=== PATIENT | female | born 1985 | race Caucasian/White ===

== ENCOUNTER 2019-05-07 01:30 | Inpatient (IN) ==
[2019-05-07] MEDS ORDERED: Ondansetron 4 MG/2 ML VIAL IVP PRN ×2 (03:10→06:51)
[2019-05-07] MEDS ORDERED: Naloxone 0.4 MG/ML INJ IVP PRN ×2 (03:10→06:51)
[2019-05-07] MEDS ORDERED: miSOPROStoL 25 MCG TABLET VG PRN (03:10)
[2019-05-07] MEDS ORDERED: Famotidine 20 MG/2 ML VIAL IVP PRN (03:10)
[2019-05-07] MEDS ORDERED: Lidocaine 1% 20 ML MDV INFILT PRN (03:10)
[2019-05-07] MEDS ORDERED: *HR* FentaNYL (PF) 100 MCG/2 ML VIAL IVP PRN (03:10)
[2019-05-07] MEDS ORDERED: Metoclopramide 10 MG/2 ML VIAL IVP PRN (03:10)
[2019-05-07] MEDS ORDERED: Ringers Solution, Lactated 1,000 ML IVC SCH (03:15)
[2019-05-07] MEDS ORDERED: Oxytocin 20 units/ LR 1000 mL 20 UNIT/1,000 ML BAG IVC SCH (03:15)
[2019-05-07 03:47] LABS: Basophils % 0.3 %; Eosinophils # 0.1 K/mcL (0.0-0.6); Eosinophils % 0.5 %; Hemoglobin 12.8 g/dL (11.5-15.4); Immature Granulocytes % 0.8 % (0-4); Lymphocytes % 19.6 %; Mean Corpuscular HGB Conc 33.7 g/dL (31.6-35.5); Mean Corpuscular Hemoglobin 31.3 pg (28.0-33.3); Mean Corpuscular Volume 92.9 fL (83.0-100.0); Mean Platelet Volume 9.7 fL (9.4-12.4); Monocytes # 0.8 K/mcL (0.0-1.3); Monocytes % 7.8 %; Neutrophils # 7.3 K/mcL (1.6-8.9); Platelet Count 200 K/mcL (140-400); Red Blood Count 4.09 M/mcL (3.82-4.97); Red Cell Distribution Width 12.8 % (11.5-14.5); White Blood Count 10.3 K/mcL (4.3-11.1)
[2019-05-07 03:55] LABS: Amphetamine Screen,Urine Negative ng/mL (Cutoff=1000); Barbiturate Screen,Urine Negative ng/mL (Cutoff=200); Benzodiazepines Screen,Urine Negative ng/mL (Cutoff=200); Cannabinoid Screen,Urine Negative ng/mL (Cutoff = 50); Cocaine Screen,Urine Negative ng/mL (Cutoff= 300); Opiate Screen,Urine Negative ng/mL (Cutoff=300); Phencyclidine Screen,Urine Negative ng/mL (Cutoff=25)
[2019-05-07] MEDS: miSOPROStoL 25 MCG TABLET PO SCH ×2 (04:39→19:58)
[2019-05-07] MEDS ORDERED: *HR* FentaNYL (PF) 100 MCG/2 ML VIAL EP ONE (06:51)
[2019-05-07] MEDS ORDERED: Ropivacaine/PF 0.2% 20 ML VIAL EP ONE (06:51)
[2019-05-07] MEDS ORDERED: EPHEDrine 50 MG/ML VIAL IVP PRN (06:51)
[2019-05-07] MEDS ORDERED: Epidural Premix (fent/bupiv) 110 ML EP SCH (07:00)
[2019-05-07] MEDS ORDERED: Bupivacaine-MPF 0.25% 10 ML VIAL ONE (07:03)
[2019-05-07] MEDS ORDERED: *HR* FentaNYL (PF) 100 MCG/2 ML VIAL ONE (07:03)
[2019-05-07] MEDS ORDERED: Measles/Mumps/Rubella Vacc 0.5 ML VIAL SQ PRN (16:43)
[2019-05-07] MEDS: Ibuprofen 600 MG TABLET PO PRN (16:50)
[2019-05-07] MEDS: Oxytocin 20 units/ LR 1000 mL 20 UNIT/1,000 ML BAG IVC SCH (18:34)
[2019-05-07] MEDS: Acetaminophen 325 MG TABLET PO PRN (20:09)
[2019-05-08] MEDS: Ibuprofen 600 MG TABLET PO PRN ×2 (01:05→10:55)
[2019-05-08] MEDS: Acetaminophen 325 MG TABLET PO PRN (01:05)
[2019-05-08] MEDS: Oxytocin 20 units/ LR 1000 mL 20 UNIT/1,000 ML BAG IVC SCH (04:37)
[2019-05-08 05:47] LABS: Basophils % 0.2 %; Eosinophils # 0.1 K/mcL (0.0-0.6); Eosinophils % 0.5 %; Hematocrit 30.1 % (35.3-44.9); Immature Granulocytes % 0.6 % (0-4); Lymphocytes # 1.7 K/mcL (0.6-4.6); Lymphocytes % 15.1 %; Mean Corpuscular HGB Conc 33.9 g/dL (31.6-35.5); Mean Corpuscular Hemoglobin 31.5 pg (28.0-33.3); Mean Corpuscular Volume 92.9 fL (83.0-100.0); Mean Platelet Volume 9.5 fL (9.4-12.4); Monocytes # 0.6 K/mcL (0.0-1.3); Monocytes % 5.5 %; Neutrophils # 8.7 K/mcL (1.6-8.9); Platelet Count 155 K/mcL (140-400); Red Blood Count 3.24 M/mcL (3.82-4.97); Red Cell Distribution Width 12.8 % (11.5-14.5); Segmented Neutrophils % 78.1 %; White Blood Count 11.1 K/mcL (4.3-11.1)
[2019-05-08 05:49] LABS: Hemoglobin 10.2 g/dL (11.5-15.4)
[2019-05-08 07:49] VITALS: BP 131/80
[2019-05-08] MEDS ORDERED: Prenatal Vit/FA 1 EACH TABLET PO SCH (09:00)
== END 2019-05-08 17:15 | disposition home or self-care (01) | DRG 807 ==
LOC: 1NENULAB 03:09 → 1NENUOBS 17:21
PROVIDERS: ADMIT Obstetrics & Gynecology; ATTEND Obstetrics & Gynecology

== ENCOUNTER 2021-07-25 05:52 | Observation (INO) ==
[2021-07-25] MEDS ORDERED: Ringers Solution, Lactated 1,000 ML ONE (07:06)
[2021-07-25] MEDS ORDERED: Ringers Solution, Lactated 500 ML IVC ONE (07:08)
[2021-07-25] MEDS ORDERED: Ringers Solution, Lactated 1,000 ML IVC SCH (07:15)
[2021-07-25] MEDS ORDERED: Betamethasone Acet/SodPhos 30 MG/5 ML VIAL IM SCH (07:15)
[2021-07-25 07:44] LABS: Basophils % 0.2 %; Eosinophils % 0.3 %; Hematocrit 36.4 % (35.3-44.9); Hemoglobin 12.4 g/dL (11.5-15.4); Immature Granulocytes % 0.5 % (0-4); Lymphocytes # 1.1 K/mcL (0.6-4.6); Lymphocytes % 16.2 %; Mean Corpuscular HGB Conc 34.1 g/dL (31.6-35.5); Mean Corpuscular Hemoglobin 30.5 pg (28.0-33.3); Mean Corpuscular Volume 89.7 fL (83.0-100.0); Mean Platelet Volume 8.8 fL (9.4-12.4); Monocytes # 0.5 K/mcL (0.0-1.3); Monocytes % 7.3 %; Neutrophils # 4.9 K/mcL (1.6-8.9); Platelet Count 188 K/mcL (140-400); Red Blood Count 4.06 M/mcL (3.82-4.97); Red Cell Distribution Width 12.9 % (11.5-14.5); Segmented Neutrophils % 75.5 %; White Blood Count 6.5 K/mcL (4.3-11.1)
[2021-07-25 07:59] LABS: Bilirubin,Urine Negative (Negative); Blood,Urine Large (Negative); Clarity,Urine Clear (Clear); Color,Urine Colorless (Yellow); Glucose,Urine (UA) Normal (Normal); Ketones,Urine Negative (Negative); Leukocyte Esterase,Urine Negative (Negative); Nitrite,Urine Negative (Negative); Protein,Urine Negative (Neg-Trace); Specific Gravity,Urine < 1.005 (1.010-1.025); Urobilinogen,Urine Normal (Normal)
[2021-07-25 08:06] LABS: Bacteria,Urine Few per hpf (None-Few); Squamous Epithelial Cell,Urine Moderate per hpf (None-Few); WBC,Urine 0-3 per hpf (0-3)
[2021-07-25] MEDS ORDERED: D5% in Lactated Ringers 500 ML IV SOLUTION IVC SCH (09:15)
[2021-07-25] MEDS ORDERED: D5% in Lactated Ringers 1,000 ML IVC SCH (09:30)
[2021-07-26 00:08] LABS: Hematocrit 38.5 % (35.3-44.9); Hemoglobin 12.8 g/dL (11.5-15.4); Mean Corpuscular HGB Conc 33.2 g/dL (31.6-35.5); Mean Corpuscular Hemoglobin 30.4 pg (28.0-33.3); Mean Corpuscular Volume 91.4 fL (83.0-100.0); Mean Platelet Volume 9.4 fL (9.4-12.4); Platelet Count 216 K/mcL (140-400); Red Blood Count 4.21 M/mcL (3.82-4.97); White Blood Count 10.6 K/mcL (4.3-11.1)
== END 2021-07-26 00:20 | disposition short-term general hospital (02) ==
LOC: 1NENULAB
PROVIDERS: ADMIT Obstetrics & Gynecology; ATTEND Obstetrics & Gynecology

== ENCOUNTER 2021-08-05 05:36 | Observation (INO) ==
[2021-08-05 07:01] LABS: Hemoglobin 12.2 g/dL (11.5-15.4); Mean Corpuscular Hemoglobin 29.6 pg (28.0-33.3); Mean Corpuscular Volume 89.8 fL (83.0-100.0); Mean Platelet Volume 9.1 fL (9.4-12.4); Platelet Count 218 K/mcL (140-400); Red Blood Count 4.12 M/mcL (3.82-4.97); Red Cell Distribution Width 12.7 % (11.5-14.5); White Blood Count 8.2 K/mcL (4.3-11.1)
[2021-08-05 07:06] LABS: Bacteria,Urine Few per hpf (None-Few); Bilirubin,Urine Negative (Negative); Blood,Urine Small (Negative); Clarity,Urine Turbid (Clear); Color,Urine Yellow (Yellow); Glucose,Urine (UA) Normal (Normal); Ketones,Urine Negative (Negative); Leukocyte Esterase,Urine Negative (Negative); Mucus,Urine Few per lpf (None-Few); Nitrite,Urine Negative (Negative); PH,Urine 6.5 pH Units (5.0-8.0); Protein,Urine Trace mg/dL (Neg-Trace); RBC,Urine 0-3 per hpf (0-3); Specific Gravity,Urine 1.018 (1.010-1.025); Squamous Epithelial Cell,Urine Moderate per hpf (None-Few); Urobilinogen,Urine Normal (Normal); WBC,Urine 0-3 per hpf (0-3)
[2021-08-05] MEDS ORDERED: Ringers Solution, Lactated 1,000 ML IVC SCH (07:15)
== END 2021-08-05 12:16 | disposition short-term general hospital (02) ==
LOC: 1NENULAB
PROVIDERS: ADMIT Obstetrics & Gynecology; ATTEND Obstetrics & Gynecology

== ENCOUNTER 2021-08-07 06:36 | Inpatient (IN) ==
[2021-08-07 06:11] LABS: Basophils % 0.2 %; Eosinophils # 0.1 K/mcL (0.0-0.6); Eosinophils % 0.8 %; Hematocrit 38.1 % (35.3-44.9); Hemoglobin 12.9 g/dL (11.5-15.4); Immature Granulocytes % 0.8 % (0-4); Lymphocytes # 1.9 K/mcL (0.6-4.6); Lymphocytes % 21.1 %; Mean Corpuscular HGB Conc 33.9 g/dL (31.6-35.5); Mean Corpuscular Hemoglobin 30.6 pg (28.0-33.3); Mean Corpuscular Volume 90.3 fL (83.0-100.0); Mean Platelet Volume 9.1 fL (9.4-12.4); Monocytes # 0.6 K/mcL (0.0-1.3); Monocytes % 6.8 %; Neutrophils # 6.4 K/mcL (1.6-8.9); Platelet Count 244 K/mcL (140-400); Red Blood Count 4.22 M/mcL (3.82-4.97); Red Cell Distribution Width 12.9 % (11.5-14.5); Segmented Neutrophils % 70.3 %; White Blood Count 9.2 K/mcL (4.3-11.1)
[~2021-08-07 06:36] MED LIST: Famotidine 20 MG/2 ML VIAL IVP PRN; Metoclopramide 10 MG/2 ML VIAL IVP PRN; Ringers Solution, Lactated 1,000 ML IVC SCH; Ringers Solution, Lactated 1,000 ML ONE
[2021-08-07 06:40] LABS: Amphetamine Screen,Urine Negative ng/mL (Cutoff=1000); Barbiturate Screen,Urine Negative ng/mL (Cutoff=200)
[2021-08-07 06:41] LABS: Benzodiazepines Screen,Urine Negative ng/mL (Cutoff=300); Cannabinoid Screen,Urine Negative ng/mL (Cutoff = 50); Cocaine Screen,Urine Negative ng/mL (Cutoff= 300); Influenza A PCR Negative (Negative); Influenza B PCR Negative (Negative); Opiate Screen,Urine Negative ng/mL (Cutoff=300); Phencyclidine Screen,Urine Negative ng/mL (Cutoff=25); Resp. Syncytial Virus PCR Negative (Negative)
[2021-08-07] MEDS ORDERED: CeFAZolin 2,000 MG/120 ML BAG IVPB ONE (07:00)
[2021-08-07] MEDS ORDERED: *HR* Phenylephrine 10 MG/ML VIAL ONE (07:04)
[2021-08-07] MEDS ORDERED: Ondansetron 4 MG/2 ML VIAL ONE (07:04)
[2021-08-07] MEDS ORDERED: Promethazine 6.25 MG in Water for inj. (sterile) 20 ML IVPB PRN (07:07)
[2021-08-07] MEDS ORDERED: Naloxone 0.4 MG/ML INJ IVP PRN (07:07)
[2021-08-07] MEDS ORDERED: *HR* FentaNYL (PF) 100 MCG/2 ML VIAL IVP PRN (07:07)
[2021-08-07] MEDS ORDERED: *HR* OxyCODONE Immed Rel 5 MG TABLET PO PRN (07:07)
[2021-08-07] MEDS ORDERED: EPHEDrine 50 MG/ML VIAL ONE (07:08)
[2021-08-07] MEDS ORDERED: *HR* Midazolam HCl 2 MG/2 ML VIAL ONE (07:08)
[2021-08-07] MEDS ORDERED: Oxytocin 30 UNIT/503 ML BAG IVC ONE (07:08)
[2021-08-07] MEDS ORDERED: *HR* FentaNYL (PF) 100 MCG/2 ML VIAL ONE (07:09)
[2021-08-07] MEDS ORDERED: *HR* Morphine Sulfate/PF 10 MG/10 ML AMPUL ONE (07:09)
[2021-08-07] MEDS ORDERED: Ringers Solution, Lactated 1,000 ML ONE (07:16)
[2021-08-07] MEDS ORDERED: *HR* Oxytocin 10 UNIT/ML VIAL ONE (07:16)
[2021-08-07 07:19] LABS: SARS-CoV-2 by PCR (In House) Negative (Negative)
[2021-08-07] MEDS ORDERED: Ketorolac 30 MG/ML VIAL ONE (08:11)
[2021-08-07] MEDS ORDERED: Acetaminophen IV 1,000 MG/100 ML BAG IVPB ONE (08:11)
[2021-08-07] MEDS ORDERED: Metoclopramide 10 MG/2 ML VIAL IVP PRN (11:24)
[2021-08-07] MEDS ORDERED: OXYTOCIN/RINGERS LACTATE 10 UNIT/166.6 ML BAG IVC ONE (11:24)
[2021-08-07] MEDS ORDERED: Ondansetron 4 MG/2 ML VIAL IVP PRN (11:24)
[2021-08-07] MEDS ORDERED: Simethicone 80 MG TAB.CHEW PO PRN (11:24)
[2021-08-07] MEDS: Prenatal Vit/FA 1 EACH TABLET PO SCH (11:40)
[2021-08-07] MEDS: Ibuprofen 600 MG TABLET PO SCH ×2 (11:41→18:25)
[2021-08-07] MEDS: Loratadine 10 MG TABLET PO SCH (11:54)
[2021-08-07] MEDS: metroNIDAZOLE 500 MG TABLET PO SCH ×3 (11:55→20:17)
[2021-08-07] MEDS: *HR* OxyCODONE Immed Rel 5 MG TABLET PO PRN ×3 (12:05→20:19)
[2021-08-07] MEDS: Acetaminophen 325 MG TABLET PO SCH (16:02)
[2021-08-07] MEDS: CeFAZolin 2,000 MG/120 ML BAG IVPB SCH (16:02)
[2021-08-07] MEDS ORDERED: *HR* Nalbuphine 10 MG/ML AMPUL IV PRN (17:04)
[2021-08-08] MEDS: Acetaminophen 325 MG TABLET PO SCH ×4 (00:26→22:37)
[2021-08-08] MEDS: CeFAZolin 2,000 MG/120 ML BAG IVPB SCH ×2 (00:26→07:42)
[2021-08-08] MEDS: Ibuprofen 600 MG TABLET PO SCH ×4 (00:26→20:06)
[2021-08-08] MEDS: *HR* OxyCODONE Immed Rel 5 MG TABLET PO PRN ×5 (03:21→21:15)
[2021-08-08 05:30] LABS: Basophils % 0.2 %; Eosinophils % 0.1 %; Hematocrit 33.2 % (35.3-44.9); Immature Granulocytes % 0.6 % (0-4); Lymphocytes # 1.6 K/mcL (0.6-4.6); Lymphocytes % 12.2 %; Mean Corpuscular HGB Conc 33.1 g/dL (31.6-35.5); Mean Corpuscular Hemoglobin 30.3 pg (28.0-33.3); Mean Corpuscular Volume 91.5 fL (83.0-100.0); Mean Platelet Volume 9.2 fL (9.4-12.4); Neutrophils # 10.3 K/mcL (1.6-8.9); Platelet Count 251 K/mcL (140-400); Red Blood Count 3.63 M/mcL (3.82-4.97); Red Cell Distribution Width 12.8 % (11.5-14.5); Segmented Neutrophils % 78.9 %; White Blood Count 13.1 K/mcL (4.3-11.1)
[2021-08-08 06:44] VITALS: TEMP 97.9
[2021-08-08] MEDS: metroNIDAZOLE 500 MG TABLET PO SCH ×2 (07:46→20:06)
[2021-08-08] MEDS: Loratadine 10 MG TABLET PO SCH (07:47)
[2021-08-08] MEDS: Prenatal Vit/FA 1 EACH TABLET PO SCH (07:47)
[2021-08-09] MEDS: *HR* OxyCODONE Immed Rel 5 MG TABLET PO PRN ×2 (02:49→09:41)
[2021-08-09] MEDS: Ibuprofen 600 MG TABLET PO SCH (02:49)
[2021-08-09] MEDS ORDERED: Acetaminophen 325 MG TABLET PO SCH (05:00)
[2021-08-09 06:54] VITALS: BP 113/74; PULSE 79; O2SAT 97
[2021-08-09] MEDS: Loratadine 10 MG TABLET PO SCH (09:41)
[2021-08-09] MEDS: Prenatal Vit/FA 1 EACH TABLET PO SCH (09:41)
== END 2021-08-09 10:50 | disposition home or self-care (01) | DRG 783 ==
LOC: 1NENULAB → 1NENUOBS 11:13
PROVIDERS: ADMIT Obstetrics & Gynecology; ATTEND Obstetrics & Gynecology